=== PATIENT | male | born 1945 | race Caucasian/White ===

== ENCOUNTER 2021-11-10 16:39 | Emergency (ER) | payer MEDICARE, OTHER ==
[2021-11-10 17:20] LABS: HEMOGLOBIN 13.5 gm/dl (14.0-17.5); RED BLOOD COUNT 4.62 M/UL (4.20-5.50); WHITE BLOOD COUNT 20.4 K/UL (4.5-11.0)
== END 2021-11-10 21:45 | disposition short-term general hospital (02) ==
LOC: ER1 16:39
PROVIDERS: Emergency Medicine
DX: J81.1 Chronic pulmonary edema (principal); E87.5 Hyperkalemia; R00.1 Bradycardia, unspecified; E11.22 Type 2 diabetes mellitus with diabetic chronic kidney disease; N18.6 End stage renal disease; I12.0 Hypertensive chronic kidney disease with stage 5 chronic kidney disease or end stage renal disease; Z86.73 Personal history of transient ischemic attack (TIA), and cerebral infarction without residual deficits; E03.9 Hypothyroidism, unspecified
CPT/HCPCS: 36600; 71045; 80048; 80053; 82803; 82962; 83605; 83690; 85025; 87040; 93005; 94640; 94660; 96374; 96375; 99285; J0610; J0696